=== PATIENT | female | born 1995 | race American Indian/Alaskan Native ===

== ENCOUNTER 2021-03-08 22:23 | Emergency (ER) | payer MEDICAID, OTHER ==
[2021-03-08] MEDS ORDERED: Ibuprofen 600 MG Tab PO ONE (22:58)
--- NOTE | 2021-03-08 23:05 | EDM.PDOC ---
ED HPI GENERAL MEDICAL PROBLEM - General Chief Complaint: Head Injury Stated Complaint: HIT IN HEAD BY A CAR DOOR Time Seen by Provider: 03/08/21 22:45 Source of Information: Reports: Patient, Family ( + son) History Limitations: Reports: No Limitations - History of Present Illness INITIAL COMMENTS - FREE TEXT/NARRATIVE: Mrs. Raphael katz 25-year-old woman who now presents the ED after the back right of her head was struck by the edge of a car door around 22:00 tonight. She states that she was getting out of the passenger side of the vehicle, when her son tried to close the door on her, striking her head. There was no loss of consciousness, but the patient states that she subsequently felt tingly and nauseated. The patient's reports that the patient suffers from chronic head and neck pain. For reasons unclear, a cervical collar was placed by the triage nurse. Here in the ED, the patient's BP is found to be slightly elevated at 137/108, otherwise, she is hemodynamically stable, afebrile, saturating 99% on room air. She appears to be overly dramatic, moving very slowly, complaining of pain everywhere, however, she does not appear to be in acute distress. Prior to tonight, the patient denies having a recent fever, chills, sore throat, ear pain, nasal or sinus congestion, cough, dyspnea, chest pain, palpitations, nausea, vomiting, constipation, diarrhea, abdominal pain, urinary symptoms, recent weight gain or weight loss, recent bloody bowel movements or black bowel movements, recent joint aches, or rashes. The patient's PCP is through [facility] in [place]. She does not recall the name of her [facility] in [place]. She has not received a COVID vaccination. Posterior Head Pain Score (Numeric/FACES): 10 - Related Data Allergies Allergy/AdvReac Type Severity Reaction Status Date / Time No Known Allergies Allergy Verified 03/08/21 22:51 Home Meds: Home Meds Pantoprazole Sodium [Protonix] 40 mg PO DAILY 03/08/21 [History] Past Medical History Gastrointestinal History: Reports: GERD, [employer]OR History: Reports: Polycystic Ovaries Endocrine/Metabolic History: Reports: Obesity/BMI 30+ - Past Surgical History HEENT Surgical History: Reports: Oral Surgery (dental extractions) GI Surgical History: Reports: Colonoscopy (x 1), EGD (x 2) Female Surgical History: Reports: Tubal Ligation Social & Family History - Tobacco Use Tobacco Use Status *Q: Never Tobacco User - Caffeine Use Caffeine Use: Reports: Coffee, Soda, Tea - Alcohol Use Alcohol Use History: Yes Alcohol Use Frequency: Socially - Recreational Drug Use Recreational Drug Use: No - Living Situation & Occupation Living situation: Reports: , with Spouse, with Family (2 kids) Occupation: Employed (high school assistant principal) ED ROS GENERAL - Review of Systems Review Of Systems: Comprehensive ROS is negative, except as noted in HPI. Musculoskeletal: Reports: Neck Pain (chronic) Neurological: Reports: Headache (chronic) ED EXAM, HEAD INJURY - Physical Exam Exam: See Below Exam Limited By: No Limitations General Appearance: Alert, WD/WN, No Apparent Distress Head: Atraumatic (No visible or palpable scalp injury, but the patient reports tenderness to palpation of the posterior right scalp), Normocephalic Eyes: Bilateral Eye: EOMI, Normal Inspection, PERRL Ears: Normal External Exam, Normal Canal, Hearing Grossly Normal, Normal TMs Nose: Normal Inspection, Normal Mucousa, No Blood Throat/Mouth: Normal Inspection, Normal Lips, Normal Teeth, Normal Gums, Normal Oropharynx, Normal Voice, No Airway Compromise Neck: Other Respiratory: No Respiratory Distress, Lungs Clear, Normal Breath Sounds, No Accessory Muscle Use Cardiovascular: Normal Peripheral Pulses, Regular Rate, Rhythm, No Edema, No Gallop, No JVD, No Murmur, No Rub GI/Abdominal Exam: Normal Bowel Sounds, Soft, Non-Tender, No Organomegaly, No Distention, No Abnormal Bruit, No Mass Back Exam: Full Range of Motion, Normal Inspection, NT Extremities: Normal Inspection, Normal Range of Motion, No Pedal Edema, Normal Capillary Refill Neurologic: messenger floorperson II-XII nml As Tested, No Motor/Sensory Deficits, Alert, Oriented x 3 Skin: Normal Color, Warm/Dry Course - Vital Signs Last Recorded V/S: Last Vital Signs Temp 36.7 C 03/08/21 22:48 Pulse 87 03/08/21 22:48 Resp 20 03/08/21 22:48 BP 137/108 H 03/08/21 22:48 Pulse Ox 99 03/08/21 22:48 - Orders/Labs/Meds Meds: Medications Discontinued Medications Generic Name Dose Route Start Last Admin Trade Name Araseli PRN Reason Stop Dose Admin Ibuprofen 600 mg 03/08/21 22:58 03/08/21 23:06 Ibuprofen 600 Mg Tab PO 03/08/21 22:59 600 mg ONETIME ONE Administration - Re-Assessments/Exams Free Text/Narrative Re-Assessment/Exam: 03/08/21 22:59 The patient sustained a minimal bump to the back right of her head tonight, after which she had some pain at that site, and felt tingly. She suffers from chronic head and neck pain. Her physical exam, including a thorough neurologic examination, was completely normal. The patient was overly dramatic, therefore I offered a CT of the head and cervical spine without contrast, however, the patient declined. She requested ibuprofen, which I have ordered. I will discharge her home. Departure - Departure Time of Disposition: 23:00 Disposition: Home, Self-Care 01 Condition: Good Clinical Impression: Scalp contusion - Discharge Information *PRESCRIPTION DRUG MONITORING PROGRAM REVIEWED*: Not Applicable *COPY OF PRESCRIPTION DRUG MONITORING REPORT IN PATIENT NIHARIKA: Not Applicable Instructions: Facial or Scalp Contusion, [id number] Referrals: PCP,None [Primary Care Provider] - Forms: ED Department Discharge Additional Instructions: You were seen in the emergency room after the back right of your head was struck by the end of a car door tonight. CT scans of your head and cervical spine were offered, but declined. You were given 600 mg of ibuprofen in the ER. Going forward, we recommend that you take [id number] Tylenol or ibuprofen as needed for discomfort. If any other problems, please do not hesitate to return to the ER. Sepsis Event Note (ED) - Focused Exam Vital Signs: Vital Signs Temp Pulse Resp BP Pulse Ox 03/08/21 22:48 36.7 C 87 20 137/108 H 99
== END 2021-03-08 23:50 | disposition home or self-care (01) ==
LOC: JD.ED 22:23
DX: S00.03XA Contusion of scalp, initial encounter (principal); K21.9 Gastro-esophageal reflux disease without esophagitis; E66.9 Obesity, unspecified; Z68.32 Body mass index [BMI] 32.0-32.9, adult; Z79.899 Other long term (current) drug therapy; W22.8XXA Striking against or struck by other objects, initial encounter
CPT/HCPCS: 99283; A9270